=== PATIENT | female | born 1985 ===

== ENCOUNTER 2020-11-20 05:40 | Day surgery (SDC) | payer OTHER ==
[2020-11-20] MEDS ORDERED: NEXIUM 24HR20 MG PO (09:07)
== END 2020-11-20 10:50 | disposition home or self-care (01) ==
LOC: AMB-ENDOS 05:40
PROVIDERS: ATTEND Surgery
DX: D13.1 Benign neoplasm of stomach (principal); Z20.822 Contact with and (suspected) exposure to COVID-19